=== PATIENT | female | born 1965 | race Caucasian/White ===

== ENCOUNTER 2017-12-16 18:26 | Emergency (ER) | payer OTHER ==
[~2017-12-16] VITALS: Ht 167.6 cm; Wt 77.1 kg
[2017-12-16] MEDS ORDERED: Zofran Odt4 MG SL (19:43)
[2017-12-16] MEDS ORDERED: Percocet 10-321 EACH PO (19:43)
[2017-12-16] MEDS ORDERED: KETO10 PO (19:43)
== END 2017-12-16 19:47 | disposition home or self-care (01) ==
LOC: ER 18:26
DX: S20.211A Contusion of right front wall of thorax, initial encounter (principal); V49.9XXA Car occupant (driver) (passenger) injured in unspecified traffic accident, initial encounter
CPT/HCPCS: 71101; 96372; 99283; J1885